=== PATIENT | female | born 1975 | race Caucasian/White ===

== ENCOUNTER 2017-07-09 14:04 | Emergency (ER) | payer OTHER ==
[2017-07-09 14:09] VITALS: BMI 26.6
--- NOTE | 2017-07-09 15:03 | PDOC ---
History of Present Illness - General Chief Complaint: Pain, Acute Stated Complaint: 8WKS PREG /RODRIGUEZ/ABD PAIN Time Seen by Provider: 07/09/17 14:57 - History of Present Illness Initial Comments: 07/09/17 15:01 Past History - Past Medical History Allergies/Adverse Reactions: Allergies Allergy/AdvReac Type Severity Reaction Status Date / Time No Known Allergies Allergy Verified 07/09/17 14:05 Home Medications: Ambulatory Orders NK [No Known Home Medication] 07/09/17 GI Disorders: Yes (GERD) - Psycho/Social/Smoking Cessation Hx Anxiety: No Suicidal Ideation: No Smoking History: Never smoked Have you smoked in the past 12 months: No Information on smoking cessation initiated: No Hx Alcohol Use: No Drug/Substance Use Hx: No Substance Use Type: None *Physical Exam - Vital Signs Last Vital Signs Temp Pulse Resp BP Pulse Ox 98.0 F 76 18 121/85 100 07/09/17 14:06 07/09/17 14:06 07/09/17 14:06 07/09/17 14:06 07/09/17 14:06 ED Treatment Course - LABORATORY CBC & Chemistry Diagram: 07/09/17 16:46 07/09/17 16:46 - RADIOLOGY Radiograph Interpretation: 07/09/17 18:26 [id number] US/ABDOMEN US HISTORY PROVIDED: Routine. Real time examination of the abdomen demonstrates the following: The gallbladder is normal in size and free of calculi with no evidence of intra or extrahepatic biliary duct dilatation. The liver is normal in size and texture with no intrahepatic masses seen. The pancreas is normal in size and texture with no pancreatic masses identified. The spleen is not enlarged. There is no evidence of hydronephrosis or acute renal abnormalities. There is no evidence of AAA. The IVC is patent. IMPRESSION: Normal abdominal sonogram. Medical Decision Making - Medical Decision Making 07/09/17 15:02 An otherwise healthy 41 year old @ 8weeks by LMP and OTC test presenting with 10 days of headache and abdominal pain. The pain has beeconstant but wabering between 4/10 and 10/10. Patient states she decided to come into the ED today because see couldn't get an appointment with her doctor until the . Ddx includes but is not limited to ectopic , molar , IUP, biliary colic, cholelithiasis, tension headache, migrane headache 07/09/17 16:10 UA negative for infection 07/09/17 17:06 Patient taken sarah US 07/09/17 17:54 patient [facility] [place] [id number] 07/09/17 18:55 Reference Ranges for beta hCG (using the Gagandeep Zenaida analyzer) during the first half of are shown below 9w -- 37235 - [id number] 10w -- 43241 - [id number] Within normal range 07/09/17 18:56 *DC/Admit/Observation/Transfer Diagnosis at time of Disposition: Qualifiers: Weeks of gestation: 9 weeks Qualified Code(s): Z3A.09 - 9 weeks gestation of Head ache Qualifiers: Headache type: unspecified Headache chronicity pattern: unspecified pattern Intractability: not intractable Qualified Code(s): R51 - Headache - Discharge Dispostion Disposition: HOME Condition at time of disposition: Improved Admit: No - Referrals Referrals: Milagros Quach MD [Primary Care Provider] - - Patient Instructions Printed Discharge Instructions: DI for Headache, Medications and Additional Instructions: Thank you for trusting us with your care today. I hope you were satisfied with the care you received. As we discussed, the lab tests and imaging we performed today were consistent with a single intrauterine . There were no concerning findings in the lab tests we ran or the imaging we performed. As we discussed you should be able to use Tylenol for your headache. If it continues, contact your primary physician and mention you were seen in the emergency deparment and you should be able to get an earlier appointment. As we discussed , you should return to the emergency department if you have any significant worsening of your symptoms or develop new symptoms such as fever or confusion. If you are unable to drive yourself safely, you should dial 911 immediately. Print Language: ROMANSH - Attestations Physician Attestion: 07/09/17 19:05 I, Dr. Mainor Rivera, attest that this document has been prepared under my direction and personally reviewed by me in its entirety. I further attest, that it accurately reflects all work, treatment, procedures and medical decision -making performed by me.
[2017-07-09 15:47] LABS: URINE APPEARANCE CLEAR; URINE BILIRUBIN NEGATIVE (NEGATIVE); URINE BLOOD NEGATIVE (NEGATIVE); URINE COLOR LTYELLOW; URINE GLUCOSE (UA) NEGATIVE (NEGATIVE); URINE KETONE NEGATIVE (NEGATIVE); URINE LEUK ESTERASE NEGATIVE (NEGATIVE); URINE NITRITE NEGATIVE (NEGATIVE); URINE PROTEIN NEGATIVE (NEGATIVE); URINE UROBILINOGEN NEGATIVE mg/dL (0.2-1.0)
[2017-07-09] MEDS ORDERED: ACETAMINOPHEN 500 MG TABLET (FP) PO ONE (16:05)
[2017-07-09] MEDS ORDERED: SODIUM CHLORIDE 1,000 ML IV STA (16:05)
[2017-07-09] MEDS ORDERED: METOCLOPRAMIDE HCL INJECTION 10 MG/2 ML VIAL IVPB ONE (16:05)
[2017-07-09] MEDS ORDERED: METOCLOPRAMIDE HCL INJECTION 10 MG/2 ML VIAL ONE (16:59)
[2017-07-09] MEDS ORDERED: ACETAMINOPHEN 325 MG TABLET (FP) ONE (16:59)
[2017-07-09 17:09] LABS: EOSINOPHIL 2.3 % (0-4.5); MCH 30.5 pg (25.7-33.7); MCHC 34.5 g/dl (32.0-36.0); MEAN CELL VOLUME 88.5 fl (80-96); MEAN PLT VOLUME 8.6 fl (7.5-11.1); NEUTROPHILS 56.4 % (42.8-82.8); PLATELET COUNT 240 K/MM3 (134-434); RDW 12.7 % (11.6-15.6); WHITE BLOOD COUNT 4.4 K/mm3 (4.0-10.0)
--- NOTE | 2017-07-09 17:18 | PDOC ---
Attending Attestation - Resident Resident Name: Mainor Rivrea - ED Attending Attestation I have performed the following: I have examined & evaluated the patient, The case was reviewed & discussed with the resident, I agree w/resident's findings & plan, Exceptions are as noted - HPI HPI: 07/09/17 17:16 41 yo @ 8weeks by LMP presents to ER with 10 days of abdominal pain. Pt reports colicky abdominal pain in her lower abdomen that radiates up to her RUQ. Pt denies any F/C. Denies N/V. Denies diarrhea/constipation. Pt denies any association with food. Pt also complains of mild headache. She states that she has had similar headaches in the past. There is no difference in the character or severity of this headache. Pt denies neck pain, denies weakness/numbness in any extremity. Denies thunderclap headache. Denies worst headache of life. - Physicial Exam PE: 07/09/17 17:17 "GENERAL: Awake, alert, and fully oriented, in no acute distress HEAD: No signs of trauma EYES: PERRLA, EOMI, sclera anicteric, conjunctiva clear ENT: Auricles normal inspection, hearing grossly normal, nares patent, oropharynx clear without exudates. Moist mucosa NECK: Normal ROM, supple, no lymphadenopathy, JVD, or masses LUNGS: Breath sounds equal, clear to auscultation bilaterally. No wheezes, and no crackles HEART: Regular rate and rhythm, normal S1 and S2, no murmurs, rubs or gallops ABDOMEN: +suprapubic tenderness to deep palpation, +mild RUQ TTP. No guarding, no rebound. Soft, normoactive bowel sounds. No masses. EXTREMITIES: Normal range of motion, no edema. No clubbing or cyanosis. No cords, erythema, or tenderness NEUROLOGICAL: Cranial nerves II through XII grossly intact. 5/5 strength and sensation in all extremities. Normal speech, normal gait SKIN: Warm, Dry, normal turgor, no rashes or lesions noted. - Medical Decision Making 07/09/17 17:22 41 F @ 8 weeks by LMP presents with suprapubic and RUQ pain, as well as headache. Exam notable for mild RUQ tenderness. Unlikely to be cholecystitis as pt afebrile with no N/V, but will r/o with US. Will also obtain TVUS to r/o ectopic . Also consider UTI as cause of suprapubic pain. Pt's RODRIGUEZ is consistent with her prior headaches. No thunderclap, no fevers, no neck stiffness, no neuro deficits to suggest SAH or meningitis. - Labs - TVUS, RUQ sono - IVF, tylenol, reglan
[2017-07-09 17:34] LABS: ALBUMIN 3.6 g/dl (3.4-5.0); ALK PHOS 42 U/L (45-117); ANION GAP 8 (8-16); BILIRUBIN,TOTAL 0.2 mg/dL (0.2-1.0); CALCIUM 8.7 mg/dL (8.5-10.1); CO2 24 mmol/L (21-32); CREATININE 0.3 mg/dL (0.55-1.02); GLUCOSE,RANDOM 80 mg/dL (74-106); SGOT/AST 16 U/L (15-37); SGPT/ALT 17 U/L (12-78); TOT PROT 7.2 g/dl (6.4-8.2)
[2017-07-09 19:16] VITALS: BP 120/78; PULSE 82; TEMP 98
== END 2017-07-09 19:16 | disposition home or self-care (01) ==
LOC: JER 14:04
PROC: 3E033GC Introduction of Other Therapeutic Substance into Peripheral Vein, Percutaneous Approach (ICD-10-PCS; principal; 2017-07-09)
PROC: 3E0337Z Introduction of Electrolytic and Water Balance Substance into Peripheral Vein, Percutaneous Approach (ICD-10-PCS; 2017-07-09)
DX: O26.891 Other specified pregnancy related conditions, first trimester (principal); Z3A.09 9 weeks gestation of pregnancy; R51 Headache
CPT/HCPCS: 36415; 76705-TC; 76830-TC; 80053; 81003; 83690; 84702; 85025; 86850; 86900; 86901; 99283-25

== ENCOUNTER 2018-02-09 22:00 | Inpatient (IN) | payer OTHER ==
[2018-02-09] MEDS ORDERED: DEXTROSE 5%-LACTATED RINGERS 1,000 ML IV SCH (23:30)
[2018-02-10 00:13] LABS: BASO % 0.5 % (0-2.0); EOS % 1.5 % (0-4.5); HEMATOCRIT 34.6 % (32.4-45.2); HEMOGLOBIN 12.1 GM/dL (10.7-15.3); MCH 31.5 pg (25.7-33.7); MCHC 34.9 g/dl (32.0-36.0); MEAN CELL VOLUME 90.5 fl (80-96); MEAN PLT VOLUME 9.5 fl (7.5-11.1); MONO % 11.5 % (3.8-10.2); NEUT % 54.5 % (42.8-82.8); PLATELET COUNT 215 K/MM3 (134-434); RBC 3.83 M/mm3 (3.60-5.2); RDW 13.2 % (11.6-15.6); WHITE BLOOD COUNT 4.2 K/mm3 (4.0-10.0)
[2018-02-10 00:16] VITALS: BMI 28.9
[2018-02-10 00:28] LABS: INR 0.9 (0.82-1.09); PROTHROMBIN TIME (PATIENT) 10.2 SEC (9.98-11.88)
[2018-02-10 00:31] LABS: ACTIVATED PTT 25.2 SECONDS (26.9-34.4)
[2018-02-10 00:37] LABS: ANION GAP 11 (8-16); BLOOD UREA NITROGEN 8 mg/dL (7-18); CALCIUM 8.9 mg/dL (8.5-10.1); CHLORIDE 105 mmol/L (98-107); CO2 23 mmol/L (21-32); CREATININE 0.5 mg/dL (0.55-1.02); GLUCOSE,RANDOM 87 mg/dL (74-106); POTASSIUM 4.2 mmol/L (3.5-5.1); SODIUM 139 mmol/L (136-145)
[2018-02-10] MEDS ORDERED: OXYTOCIN 20 UNITS in 0.9% NS 20 UNIT/1,000 ML INFUS.BAG IV ONE ×2 (02:13→03:51)
[2018-02-10] MEDS ORDERED: LIDOCAINE HCL 1% PRESERVATIVE FREE - 30ML VIAL ONE (02:13)
--- NOTE | 2018-02-10 02:28 | HP ---
Past Medical History - Admission Chief Complaint: Labor pain History of Present Illness: 42 yo @ 40 weeks gestation, EDC 02/10/18, admitted for labor pain. History Source: Family Member Limitations to Obtaining History: No Limitations - Past Medical History ...: 5 ...Para: 4 ...Term: 4 ...: 0 ...Spon : 0 ...Induced : 0 ...Multiple Gestation: 0 ...LMP: 04/30/17 ... Weeks Gestation by Dates: 40.5 ...EDC by Dates: 02/04/18 ...EDC by Sono: 02/10/18 - Past Surgical History Past Surgical History: Yes: None Hx Myomectomy: No Hx Transabdominal Cerclage: No - Smoking History Smoking history: Never smoked Have you smoked in the past 12 months: No - Alcohol/Substance Use Hx Alcohol Use: No History of Substance Use: reports: None - Social History Usual Living Arrangement: Yes: With Spouse History of Recent Travel: No Home Medications - Allergies Allergies/Adverse Reactions: Allergies Allergy/AdvReac Type Severity Reaction Status Date / Time No Known Allergies Allergy Verified 07/09/17 14:05 - Home Medications Home Medications: Ambulatory Orders Tablet 1 tablet PO DAILY 02/09/18 Ranitidine [Zantac -] 150 mg PO BID 02/09/18 Family Disease History - Family Disease History Family History: Unremarkable Review of Systems - Review of Systems Constitutional: reports: No Symptoms Eyes: reports: No Symptoms HENT: reports: No Symptoms Neck: reports: No Symptoms Cardiovascular: reports: No Symptoms Respiratory: reports: No Symptoms Gastrointestinal: reports: No Symptoms Genitourinary: reports: Pain Breasts: reports: No Symptoms Reported Musculoskeletal: reports: No Symptoms Integumentary: reports: No Symptoms Neurological: reports: No Symptoms Endocrine: reports: No Symptoms Pain Intensity: 8 Physical Exam - Maternity Vital Signs: Vital Signs Temperature 97.9 F 02/10/18 00:10 Pulse Rate 73 02/10/18 01:00 Respiratory Rate 20 02/10/18 01:00 Blood Pressure 120/87 02/10/18 01:00 O2 Sat by Pulse Oximetry (%) Constitutional: Yes: Well Nourished Eyes: Yes: Conjunctiva Clear HENT: Yes: Atraumatic Neck: Yes: Supple Cardiovascular: Yes: Regular Rate and Rhythm Lungs: Clear to auscultation Breast(s): Yes: WNL - Abdominal Exam/OB Number of Fetuses: Single Presentation: Vertex - Vaginal Exam/OB Dilatation (cm): 3 Effacement (%): 80 Amniotic Membrane Status: Intact Station: -2 - Physical Exam ...Motor Strength: WNL Psychiatric: Yes: Alert, Oriented - Labs Lab Results: CBC, BMP 02/09/18 23:47 02/09/18 23:47 Problem List - Problems (1) Pain during labor Code(s): O99.89 - OTH DISEASES AND CONDITIONS COMPL PREG/CHLDBRTH; R52 - PAIN, UNSPECIFIED Assessment/Plan Pain during labor [place] Multip Admit to L&D Anticipate
[2018-02-10] MEDS ORDERED: BENZOCAINE 20% 57 GM BOTTLE TP PRN (02:45)
[2018-02-10] MEDS ORDERED: BISACODYL 10 MG SUPP.RECT RC PRN (02:45)
[2018-02-10] MEDS ORDERED: METHYLERGONOVINE MALEATE 0.2 MG/1 ML AMP IM PRN (02:45)
[2018-02-10] MEDS ORDERED: BENZOCAINE 28 GM HEMORRHOIDAL OINTMENT TP PRN (02:45)
[2018-02-10] MEDS ORDERED: WITCH HAZEL 50% (TUCKS) 40 PAD/JAR PAD TP PRN (02:45)
--- NOTE | 2018-02-10 02:48 | PN ---
Delivery - Delivery Vaginal Delivery: Spontaneous Episiotomy/Laceration: None EBL (cc): 300 Delivery, Single - Feeding Plan Initial Plan: Elected not to breastfeed exclusively throughout hospitalization Remarks - Remarks Remarks: Normal Spontaneous vaginal delivery of a live infant girl over intact perineum. Nose / Oropharynx suction @ perineum. Cord clamped and cut Placenta expelled spontaneously intact.
[2018-02-10] MEDS ORDERED: OXYTOCIN 20 UNITS in 0.9% NS 20 UNIT/1,000 ML INFUS.BAG IV SCH (03:30)
[2018-02-10] MEDS: ACETAMINOPHEN 325 MG TABLET (FP) PO PRN (04:32)
[2018-02-10] MEDS: IBUPROFEN 600 MG TABLET (FP) PO PRN (04:33)
[2018-02-10] MEDS ORDERED: TUBERCULIN PPD 5 TU/0.1ML SYRINGE (IN PATIENT USE ONLY) ID ONE (05:00)
[2018-02-10] MEDS: FERROUS SO4 325 MG TABLET (FP) PO SCH ×3 (08:00→17:53)
[2018-02-10] MEDS: PRENATAL VITAMINS W/ FOLIC ACID TABLET (FP) PO SCH (09:33)
[2018-02-11] MEDS: FERROUS SO4 325 MG TABLET (FP) PO SCH ×3 (08:13→17:04)
[2018-02-11 09:14] LABS: BASO % 0.4 % (0-2.0); EOS % 2.1 % (0-4.5); HEMATOCRIT 34.2 % (32.4-45.2); HEMOGLOBIN 11.9 GM/dL (10.7-15.3); LYMPH % 25.3 % (8-40); MCH 31.5 pg (25.7-33.7); MCHC 34.6 g/dl (32.0-36.0); MEAN CELL VOLUME 91.1 fl (80-96); MEAN PLT VOLUME 9.2 fl (7.5-11.1); MONO % 7.1 % (3.8-10.2); NEUT % 65.1 % (42.8-82.8); PLATELET COUNT 199 K/MM3 (134-434); RBC 3.76 M/mm3 (3.60-5.2); RDW 13.6 % (11.6-15.6); WHITE BLOOD COUNT 5.3 K/mm3 (4.0-10.0)
[2018-02-11] MEDS: PRENATAL VITAMINS W/ FOLIC ACID TABLET (FP) PO SCH (09:31)
[2018-02-11] MEDS ORDERED: DIPHTH,PERTUSS(ACELL),TET 0.5 ML DISP.SYRIN IM ONE (10:00)
[2018-02-11] MEDS: IBUPROFEN 600 MG TABLET (FP) PO PRN (12:02)
[2018-02-11] MEDS: ACETAMINOPHEN 325 MG TABLET (FP) PO PRN (12:02)
[2018-02-11] MEDS ORDERED: SENNOSIDES/DOCUSATE COMBO (SENNA PLUS) TABLET (UD) PO PRN (22:00)
--- NOTE | 2018-02-12 07:51 | PN ---
Post Note - Post Date of Delivery: 02/10/18 Post Day: 1 Vital Signs: Vital Signs - 24 hr 02/11/18 02/11/18 09:59 21:00 Temperature 98.1 F 98.3 F Pulse Rate 75 89 Respiratory 20 20 Rate Blood Pressure 107/72 118/75 Labs: Laboratory Results - last 24 hr 02/11/18 08:00 WBC 5.3 RBC 3.76 Hgb 11.9 Hct 34.2 MCV 91.1 MCH 31.5 MCHC 34.6 RDW 13.6 Plt Count 199 MPV 9.2 Neutrophils % 65.1 Lymphocytes % 25.3 D Monocytes % 7.1 Eosinophils % 2.1 Basophils % 0.4 - Subjective Subjective: No Complaints - Objective Breast: Not engorged Abdomen: Soft, Non-tender Uterus: Fundus firm Vagina: Scant lochia Extremities: Non-tender - Assessment/Plan (1) Normal vaginal delivery Assessment: S/P Normal Plan: Routine Care
--- NOTE | 2018-02-12 07:52 | PN ---
Post Note - Post Date of Delivery: 02/10/18 Post Day: 2 Vital Signs: Vital Signs - 24 hr 02/11/18 02/11/18 09:59 21:00 Temperature 98.1 F 98.3 F Pulse Rate 75 89 Respiratory 20 20 Rate Blood Pressure 107/72 118/75 Labs: Laboratory Results - last 24 hr 02/11/18 08:00 WBC 5.3 RBC 3.76 Hgb 11.9 Hct 34.2 MCV 91.1 MCH 31.5 MCHC 34.6 RDW 13.6 Plt Count 199 MPV 9.2 Neutrophils % 65.1 Lymphocytes % 25.3 D Monocytes % 7.1 Eosinophils % 2.1 Basophils % 0.4 - Subjective Subjective: No Complaints - Objective Breast: Not engorged Abdomen: Soft, Non-tender Uterus: Fundus firm Vagina: Scant lochia Extremities: Non-tender - Assessment/Plan (1) Normal vaginal delivery Assessment: S/P Normal Plan: Routine Care, Other ([place] home)
--- NOTE | 2018-02-12 07:54 | DS ---
Physical Exam-[facility] Vital Signs: Vital Signs Temperature 98.3 F 02/11/18 21:00 Pulse Rate 89 02/11/18 21:00 Respiratory Rate 20 02/11/18 21:00 Blood Pressure 118/75 02/11/18 21:00 O2 Sat by Pulse Oximetry (%) Constitutional: Yes: Well Nourished, No Distress Cardiovascular: Yes: WNL Respiratory: Yes: WNL Gastrointestinal: Yes: WNL ....Post : Yes: Uterus firm, Uterus non-tender Breast(s): Yes: WNL Musculoskeletal: Yes: WNL Labs: CBC, BMP 02/11/18 08:00 02/09/18 23:47 Delivery - Delivery Vaginal Delivery: Spontaneous Type of Anesthesia: None Episiotomy/Laceration: None EBL (cc): 300 Delivery, Single - Stages of Labor Date 1st Stage Initiatied: 02/09/18 Time 1st Stage Initiated: 19:00 Date 2nd Stage Initiated: 02/10/18 Time 2nd Stage Initiated: 02:35 Date of Delivery: 02/10/18 Time of Delivery: 02:39 Time Placenta Delivered: 02:41 Placenta: Yes: Spontaneous - Condition of Rn Family/Manager Respiratory Care Present: No Infant Gender: Female Weight: 6 lb 5 oz Total Hours ROM (Hrs/Mins): 41MINS - 1 Minute Total Score: 9 5 Minutes Total Score: 9 - Feeding Plan Initial Plan: Elected not to breastfeed exclusively throughout hospitalization Discharge Summary Reason For Visit: LABOR Current Active Problems Normal vaginal delivery (Acute) Pain during labor (Acute) Procedures: Principal: Normal vaginal delivery Condition: Good - Instructions Diet, Activity, Other Instructions: Physical activity Resume your normal everyday activity as tolerated no heavy lifting or exercise until seen by your surgeon. You may walk unlimited dariana of and climb stairs. You may resume driving the car when you feel safe and comfortable behind the wheel. No sexual activity as instructed. Wound care If you have a bandage, leave it on, and keep dry for 48-72 hours. After that time discard the outer bandage. If they are tapes on the skin under the out of bandage leave them in place. They will peel off in the next 7 to 10 days. Do Not Peel them off. You may shower the day after surgery. If there are tapes present on the skin, you may shower over them. Diet There are no dietary restrictions. Eat healthy, high-fiber foods. Drink 6 to 8 glasses of liquid each day. This will assist in keeping your bowels are regular. Pain management You may take Tylenol or acetaminophen or Ibuprofen (for example, Motrin, Advil etc.) from my pain prescription medication is ordered should be taken as prescribed for moderate to severe pain. Call MD for any of the following: Severe pain not relieved by medication Fever of 101 or higher Excessive bleeding or drainage on dressing Inability to urinate Disposition: HOME - Home Medications Comprehensive Discharge Medication List: Ambulatory Orders Tablet 1 tablet PO DAILY 02/09/18 Ranitidine [Zantac -] 150 mg PO BID 02/09/18 Ibuprofen [Motrin -] 600 mg PO QID #28 tablet 02/11/18
[2018-02-12] MEDS: FERROUS SO4 325 MG TABLET (FP) PO SCH (08:35)
[2018-02-12 09:12] VITALS: BP 109/68; PULSE 78; TEMP 98.6
[2018-02-12] MEDS: PRENATAL VITAMINS W/ FOLIC ACID TABLET (FP) PO SCH (09:51)
== END 2018-02-12 11:00 | disposition home or self-care (01) | DRG 560 ==
LOC: JDEL 22:00 → JLDR 23:30 → J3W 02-10 04:00
PROVIDERS: ADMIT Obstetrics & Gynecology; ATTEND Obstetrics & Gynecology
PROC: 10E0XZZ Delivery of Products of Conception, External Approach (ICD-10-PCS; principal; 2018-02-10)
DX: O48.0 Post-term pregnancy (principal); Z3A.40 40 weeks gestation of pregnancy; Z37.0 Single live birth
CPT/HCPCS: 36415; 59409; 80048; 85025; 85610; 85730; 86593; 86850; 86900; 86901; 90715

== ENCOUNTER 2021-05-03 20:23 | Emergency (ER) | payer OTHER ==
[2021-05-03 20:33] VITALS: PULSE 68; TEMP 98.5; BMI 27.8
[2021-05-03] MEDS ORDERED: FAMOTIDINE 20 MG/50 ML IVPB 20 MG/50 ML MG IVPB ONE ×2 (21:14→21:25)
[2021-05-03] MEDS ORDERED: MAG HYDROX/AL HYDROX/SIMETH 30 ML UNIT-DOSE CUP PO ONE (21:14)
[2021-05-03] MEDS ORDERED: ACETAMINOPHEN 325 MG TABLET (FP) PO ONE (21:14)
[2021-05-03] MEDS ORDERED: ACETAMINOPHEN 325 MG TABLET (FP) ONE (21:25)
[2021-05-03] MEDS ORDERED: MAG HYDROX/AL HYDROX/SIMETH 30 ML UNIT-DOSE CUP ONE (21:25)
[2021-05-03 21:54] LABS: BASO % 0.9 % (0-2.0); EOS % 2.7 % (0-4.5); HEMATOCRIT 32.4 % (32.4-45.2); LYMPH % 35.9 % (8-40); MCH 28.8 pg (25.7-33.7); MEAN CELL VOLUME 84.7 fl (80-96); MEAN PLT VOLUME 8.6 fl (7.5-11.1); MONO % 12.7 % (3.8-10.2); NEUT % 47.8 % (42.8-82.8); PLATELET COUNT 280 K/MM3 (134-434); RBC 3.82 M/mm3 (3.60-5.2); RDW 13.9 % (11.6-15.6); WHITE BLOOD COUNT 3.6 K/mm3 (4.0-10.0)
[2021-05-03 22:01] LABS: CHLORIDE 105 mmol/L (98-107); SODIUM 137 mmol/L (136-145)
[2021-05-03 22:03] LABS: CALCIUM 8.8 mg/dL (8.5-10.1)
[2021-05-03 22:04] LABS: ALBUMIN 3.8 g/dl (3.4-5.0); ANION GAP 7 MMOL/L (8-16); BLOOD UREA NITROGEN 10.2 mg/dL (7-18); CO2 25 mmol/L (21-32); GLUCOSE,RANDOM 91 mg/dL (74-106); LIPASE 147 U/L (73-393)
[2021-05-03 22:07] LABS: CREATININE 0.5 mg/dL (0.55-1.3); SGOT/AST 19 U/L (15-37); SGPT/ALT 19 U/L (13-61)
[2021-05-03 22:08] LABS: BILIRUBIN,TOTAL 0.3 mg/dL (0.2-1); TOT PROT 7.6 g/dl (6.4-8.2)
[2021-05-03 22:10] LABS: ALK PHOS 49 U/L (45-117)
[2021-05-04 01:25] VITALS: BP 119/74
== END 2021-05-04 01:55 | disposition home or self-care (01) ==
LOC: JER 20:23
PROC: 3E033GC Introduction of Other Therapeutic Substance into Peripheral Vein, Percutaneous Approach (ICD-10-PCS; principal; 2021-05-03)
DX: R07.89 Other chest pain (principal)
CPT/HCPCS: 36415; 71046-TC-FY; 80053; 83690; 84484; 84703; 85025; 93005; 93010; 99285-25

== ENCOUNTER 2021-05-05 00:39 | Emergency (ER) | payer OTHER ==
[2021-05-05 01:25] VITALS: BP 118/71; PULSE 67; TEMP 98.6; BMI 27.7
== END 2021-05-05 02:55 | disposition home or self-care (01) ==
LOC: JER 00:39
DX: R07.89 Other chest pain (principal)
CPT/HCPCS: 93005; 93010; 99284-25